=== PATIENT | male | born 2000 | race Two or more races ===

== ENCOUNTER 2024-12-20 20:53 | Emergency (ER) | payer MEDICAID, SELFPAY ==
[2024-12-20 20:53] VITALS: BMI 25.1
[2024-12-20 21:03] VITALS: BP 142/86; PULSE 64; RESP 18; TEMP 36.7; O2SAT 97
--- NOTE | 2024-12-20 21:17 | PD.EDNV ---
Nausea/Vomit./Diarrhea-RME/HPI General Chief complaint: Abdominal Pain Stated complaint: ABD PAIN/ VOMITING X 3HOURS Time Seen by Provider: 12/20/24 21:15 Arrival date/time: 12/20/24 20:53 24M with no significant PMH presents to ED with several hours of epigastric pain and N/V. Patient smoked some weed last night. Patient denies diarrhea. Limitations: no limitations Related Data Previous Rx's ?Medication ?Instructions ?Recorded ondansetron 4 mg disintegrating 4 mg PO Q8H PRN nausea and 12/20/24 tablet vomiting #14 tabs Allergies Allergy/AdvReac Type Severity Reaction Status Date / Time NKA Allergy Unknown Uncoded 02 23:28 No Known Allergies Allergy Uncoded 02 17:56 Review of Systems Review of Systems Systems Reviewed: All systems reviewed, normal except as documented Gastrointestinal Gastrointestinal: Reports as per HPI, Reports abdominal pain, Reports nausea and Reports vomiting Past Medical History Social History SMOKING STATUS: Never smoker ED Exam General Limitations: Present no limitations General appearance: Present alert and in no apparent distress Head Head exam: Present atraumatic Neck Neck exam: Present normal inspection, full ROM and trachea midline Chest Chest inspection: Present normal inspection and symmetric chest wall rise Abdominal Exam Abdominal exam: Present soft and normal bowel sounds Extremities Exam Extremities exam: Present normal inspection and full ROM Neurological Exam Neurological exam: Present alert and oriented X3 Psychiatric Psychiatric exam: Present normal affect and normal mood Skin Skin exam: Present warm, dry, intact and normal color Course Quality Measures none Orders Category Date Time Status Dicyclomine [Bentyl] Med 12/20/24 21:14 Discontinued 10 mg PO X1 ONE Famotidine [Pepcid] Med 12/20/24 21:14 Discontinued 40 mg PO X1 ONE Ondansetron Odt [Zofran Odt] Med 12/20/24 21:14 Discontinued 4 mg PO X1 ONE Vital Signs Vital signs: Vital Signs Temperature 98.1 F 12/20/24 21:03 Pulse Rate 64 12/20/24 21:03 Respiratory Rate 18 12/20/24 21:03 Blood Pressure 142/86 H 12/20/24 21:03 Pulse Oximetry (%) 97 12/20/24 21:03 Oxygen Delivery Method Room Air 12/20/24 21:03 O2 at 97% on RA and WNLs Nausea/Vomiting/Diarrhea MDM Narrative MDM Narrative:: 24M with no significant PMH presents to ED with several hours of epigastric pain and N/V. Patient smoked some weed last night. Patient denies diarrhea. Physical exam reveals no ab tenderness. Patient is afebrile, alert, but appears uncomfortable. GI cocktail improved symptoms. 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 Patient data External records reviewed:: [facility] previous records Clinical information provided by:: patient Social determinants that could affect healthcare access:: substance use Patient has the following chronic illnesses:: marijuana use How is presenting disease/condition affected by chronic disease/condition?: exacerbated by Evaluation data The following diagnostics were reviewed and interpreted by me:: other (specify) (none) Lab and/or radiology exams considered but not ordered:: not ordered Interpretation Summary: n/a Medications / Prescriptions Medications / Prescriptions considered but not ordered:: ordered Medication administrations:: Medication Administration History Discontinued Medications Dicyclomine HCl (Dicyclomine 10 Mg Capsule) 10 mg PO X1 ONE Stop: 12/20/24 21:15 Last Admin: 12/20/24 21:21 Dose: 10 mg Documented By: TRAN Famotidine (Famotidine 20 Mg Tablet) 40 mg PO X1 ONE Stop: 12/20/24 21:15 Last Admin: 12/20/24 21:21 Dose: 40 mg Documented By: TRAN Ondansetron HCl (Ondansetron Odt 4 Mg Tabrap) 4 mg PO X1 ONE; Protocol Stop: 12/20/24 21:15 Last Admin: 12/20/24 21:21 Dose: 4 mg Documented By: TRAN above Consultations Consultation(s) initiated? (list below): No Diagnosis Nausea Differential Diagnosis: traveler's diarrhea, food poisoning, gastroenteritis, clostridium difficile infection, drug-induced nausea and vomiting, dehydration and other (Gastritis) Most likely diagnosis given after review of the tests above:: gastritis Admission Indicated Admission indicated?: not indicated Admission Request Was there a request for admission?: No Disposition Plan Disposition Plan: Discharge Discharge Attestation Discharge Attestation: The patient and all family members were given an opportunity to ask questions and understood the discharge instructions. Discharge instructions specifically effects, indications for sooner follow up or return to the emergency department, and the expected course of current diagnosis. Patient condition: Stable Discharge Plan Plan Patient Disposition: HOME (Self Care) Discharge Disposition comment: Stable Prescriptions/Referrals Prescriptions/Med Rec: New ondansetron 4 mg tablet,disintegrating 4 mg PO Q8H PRN (Reason: nausea and vomiting) Qty: 14 0RF Referrals: Temporary Provider,ED [Physician, Emergency Medicine] - In 1 week Problem List Clinical Impression: Gastritis Patient/Caregiver Discharge Instructions Education Materials: ED Gastritis (Adult) Additional Instructions: Please follow-up with PCP within 24-48 hours and return immediately if symptoms worsen. Can try OTC TUMS and/or Pepcid. 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 Lindsey
[2024-12-20] MEDS: FAMOTIDINE 20 MG TABLET 40 MG PO (21:21)
[2024-12-20] MEDS: ONDANSETRON ODT 4 MG TABRAP PO (21:21)
[2024-12-20] MEDS: DICYCLOMINE 10 MG CAPSULE PO (21:21)
== END 2024-12-20 22:15 | disposition home or self-care (01) ==
PROVIDERS: Emergency Provider Emergency Medicine
DX: K29.70 Gastritis, unspecified, without bleeding (principal)
CPT/HCPCS: 99282; Q0162; A9270